=== PATIENT | male | born 1970 | race Caucasian/White ===

== ENCOUNTER 2025-03-23 21:13 | Emergency (ER) | payer OTHER ==
[2025-03-23 21:17] VITALS: RESP 18; BMI 26.4
[2025-03-23 22:41] VITALS: BP 139/82; PULSE 78; TEMP 98.2
== END 2025-03-24 00:01 | disposition home or self-care (01) ==
LOC: JER 21:13
DX: R14.0 Abdominal distension (gaseous) (principal); T83.091A Other mechanical complication of indwelling urethral catheter, initial encounter; R10.9 Unspecified abdominal pain
CPT/HCPCS: 99282-25

== ENCOUNTER 2025-04-12 01:30 | Inpatient (IN) | payer OTHER ==
[2025-04-12] MEDS: LACTATED RINGERS SOLUTION 1000 ML INFUS.BAG IV ONE (02:57)
[2025-04-12 03:07] LABS: EPI CELLS 8 /uL (0-25.1); HYALINE CASTS 0 /uL (0-3.1); URINE APPEARANCE TURBID; URINE BACTERIA 20 /uL (0-1359); URINE BILIRUBIN NEGATIVE (NEGATIVE); URINE COLOR YELLOW; URINE GLUCOSE (UA) TRACE (NEGATIVE); URINE KETONE NEGATIVE (NEGATIVE); URINE LEUK ESTERASE NEGATIVE (NEGATIVE); URINE NITRITE NEGATIVE (NEGATIVE); URINE PROTEIN 4+ (NEGATIVE); URINE RBC 827 /uL (0-23.9); URINE UROBILINOGEN 0.2 mg/dL (0.2-1.0); URINE WBC 9 /uL (0-25.8)
[2025-04-12] MEDS: SODIUM CHLORIDE 0.9% 500 ML INFUS.BAG IV ONE (03:10)
[2025-04-12 03:15] LABS: ABSOLUTE IMMATURE GRANULOCYTES 0.07 x10^3/uL (0.0-0.031); BASOPHILS # 0.04 x10^3/uL (0.01-0.08); EOSINOPHIL % 0.1 % (0.8-7.0); EOSINOPHILS # 0.01 x10^3/uL (0.04-0.54); MCHC 31.5 g/dl (32.3-36.5); MEAN CELL VOLUME 99.5 fl (79.0-92.2); MEAN PLT VOLUME 11.5 fl (9.4-12.4); MONOCYTE # 0.57 x10^3/uL (0.30-0.82); MONOCYTE % 5.0 % (5.3-12.2); RDW 12.1 % (12.2-16.1)
[2025-04-12 03:23] LABS: INR 0.96 (0.83-1.09); PROTHROMBIN TIME (PATIENT) 10.5 SEC (9.7-13.0)
[2025-04-12 03:25] LABS: ACTIVATED PTT 24.7 SECONDS (25.2-36.5)
[2025-04-12 03:41] LABS: CO2 26.0 mmol/L (21-32); GLUCOSE,RANDOM 167.0 mg/dL (74-106)
[2025-04-12 03:44] LABS: CREATININE 0.8 mg/dL (0.55-1.3); SGOT/AST 16.0 U/L (15-37); SGPT/ALT 32.0 U/L (13-61)
[2025-04-12 03:46] LABS: TOT PROT 6.7 g/dl (6.4-8.2)
[2025-04-12 03:47] LABS: ALK PHOS 72.0 U/L (45-117)
[2025-04-12] MEDS: D5-1/2NS+20 MEQ KCL - 20 MEQ/1,000 ML INFUS.BAG IV SCH (13:40)
[2025-04-13 08:48] LABS: ABSOLUTE IMMATURE GRANULOCYTES 0.02 x10^3/uL (0.0-0.031); BASOPHILS # 0.04 x10^3/uL (0.01-0.08); EOSINOPHIL % 0.7 % (0.8-7.0); EOSINOPHILS # 0.05 x10^3/uL (0.04-0.54); MCHC 31.1 g/dl (32.3-36.5); MEAN CELL VOLUME 99.1 fl (79.0-92.2); MEAN PLT VOLUME 11.5 fl (9.4-12.4); MONOCYTE # 0.59 x10^3/uL (0.30-0.82); MONOCYTE % 8.3 % (5.3-12.2); RDW 12.2 % (12.2-16.1)
[2025-04-13] MEDS: TAMSULOSIN HCL 0.4 MG CAP PO SCH (09:08)
[2025-04-13 09:53] LABS: CO2 28.0 mmol/L (21-32); GLUCOSE,RANDOM 134.0 mg/dL (74-106)
[2025-04-13 09:57] LABS: CREATININE 0.8 mg/dL (0.55-1.3); SGOT/AST 17.0 U/L (15-37); SGPT/ALT 26.0 U/L (13-61)
[2025-04-13 09:58] LABS: TOT PROT 6.3 g/dl (6.4-8.2)
[2025-04-13 10:00] LABS: ALK PHOS 71.0 U/L (45-117)
[2025-04-14 06:57] LABS: MCHC 31.3 g/dl (32.3-36.5); MEAN CELL VOLUME 100.7 fl (79.0-92.2); MEAN PLT VOLUME 11.8 fl (9.4-12.4); RDW 11.9 % (12.2-16.1)
[2025-04-14 07:32] LABS: CO2 24 mmol/L (21-32)
[2025-04-14 07:33] LABS: SGPT/ALT 24 U/L (13-61)
[2025-04-14 07:34] LABS: CREATININE 0.8 mg/dL (0.55-1.3); SGOT/AST 13 U/L (15-37)
[2025-04-14 07:36] LABS: ALK PHOS 66 U/L (45-117); TOT PROT 6.0 g/dl (6.4-8.2)
[2025-04-14 07:37] LABS: GLUCOSE,RANDOM 558 mg/dL (74-106)
[2025-04-14 09:23] LABS: CO2 29.0 mmol/L (21-32); GLUCOSE,RANDOM 124.0 mg/dL (74-106)
[2025-04-14 09:27] LABS: CREATININE 0.7 mg/dL (0.55-1.3); SGOT/AST 14.0 U/L (15-37); SGPT/ALT 25.0 U/L (13-61)
[2025-04-14 09:29] LABS: ALK PHOS 73.0 U/L (45-117); TOT PROT 6.5 g/dl (6.4-8.2)
[2025-04-14] MEDS ORDERED: SODIUM CHLORIDE 0.45% 1,000 ML IV SCH (09:30)
[2025-04-14] MEDS: DEXTROSE 5%-0.45% SALINE 1,000 ML IV SCH ×2 (10:12→18:20)
[2025-04-14 17:11] VITALS: BMI 27.1
[2025-04-14] MEDS ORDERED: ONDANSETRON 4 MG/2 ML VIAL IVPUSH PRN (17:51)
[2025-04-14] MEDS: ERTAPENEM SODIUM 1 GM in SODIUM CHLORIDE 50 ML IVPB SCH (19:40)
[2025-04-15 06:31] VITALS: RESP 18
[2025-04-15 08:41] LABS: MCHC 31.8 g/dl (32.3-36.5); MEAN CELL VOLUME 98.8 fl (79.0-92.2); MEAN PLT VOLUME 11.8 fl (9.4-12.4); RDW 11.6 % (12.2-16.1)
[2025-04-15] MEDS: TAMSULOSIN HCL 0.4 MG CAP PO SCH (09:06)
[2025-04-15] MEDS: ERTAPENEM SODIUM 1 GM in SODIUM CHLORIDE 50 ML IVPB SCH (09:07)
[2025-04-15 09:15] VITALS: BP 125/88; PULSE 86; TEMP 98
[2025-04-15 09:33] LABS: CO2 26.0 mmol/L (21-32); GLUCOSE,RANDOM 113.0 mg/dL (74-106)
[2025-04-15 09:37] LABS: CREATININE 0.7 mg/dL (0.55-1.3); SGOT/AST 14.0 U/L (15-37); SGPT/ALT 26.0 U/L (13-61)
[2025-04-15 09:38] LABS: TOT PROT 6.5 g/dl (6.4-8.2)
[2025-04-15 09:39] LABS: ALK PHOS 75.0 U/L (45-117)
== END 2025-04-15 15:19 | disposition home or self-care (01) | DRG 482 ==
LOC: JER 01:30 → JERBED 06:06 → OBSVTOIN 10:18 → J7W 23:22
PROVIDERS: ADMIT Family Medicine; ATTEND Family Medicine
PROC: 0V508ZZ Destruction of Prostate, Via Natural or Artificial Opening Endoscopic (ICD-10-PCS; 2025-04-14)
PROC: 0VC08ZZ Extirpation of Matter from Prostate, Via Natural or Artificial Opening Endoscopic (ICD-10-PCS; principal; 2025-04-14 17:00)
DX: N40.1 Benign prostatic hyperplasia with lower urinary tract symptoms (principal); R33.8 Other retention of urine; N32.89 Other specified disorders of bladder; N42.89 Other specified disorders of prostate; E87.5 Hyperkalemia; D72.829 Elevated white blood cell count, unspecified; N99.89 Other postprocedural complications and disorders of genitourinary system
CPT/HCPCS: 36415; 76775-TC; 80053; 81003; 82962; 83735; 85025; 85027; 85610; 85730; 86850; 86900; 86901; 87086; 94760; 99285-25; G0378